=== PATIENT | female | born 1980 | race Caucasian/White ===

== ENCOUNTER 2021-12-28 08:50 | Emergency (ER) | payer OTHER ==
[2021-12-28] MEDS: Sodium Chloride 0.9% 1,000 ML IV ONE (09:56)
== END 2021-12-28 11:30 | disposition home or self-care (01) ==
LOC: FB.ED 08:50
DX: I95.1 Orthostatic hypotension (principal)
CPT/HCPCS: 36415; 80053; 85025; 93005; 93010; 99283; 99284-25; J7030